=== PATIENT | female | born 1960 | race Caucasian/White ===

== ENCOUNTER → 2021-09-24 | Outpatient (CLI) | payer OTHER ==
[~2021-09-24] MED LIST: FLAGYL500 MG PO; LEVAQUIN500 MG PO
[2021-09-24 10:48] LABS: HEMOGLOBIN 12.2 gm/dl (12.3-15.3); RED BLOOD COUNT 3.94 M/UL (4.00-5.10); WHITE BLOOD COUNT 6.1 K/UL (4.5-11.0)
[2021-09-24 11:20] LABS: BUN/CREATININE RATIO 23 (0-10)
== END ==
LOC: LAB 10:23
PROVIDERS: Family Medicine
DX: Z13.220 Encounter for screening for lipoid disorders (principal); R53.83 Other fatigue; E55.9 Vitamin D deficiency, unspecified
CPT/HCPCS: 36415; 80053; 80061; 83735; 85027

== ENCOUNTER → 2022-03-14 | Outpatient (CLI) | payer OTHER ==
[2022-03-14 10:49] LABS: BUN/CREATININE RATIO 18 (0-10)
== END ==
LOC: LAB 09:53
PROVIDERS: Family Medicine
DX: E87.6 Hypokalemia (principal)
CPT/HCPCS: 36415; 80048